=== PATIENT | male | born 1945 | race Caucasian/White ===

== ENCOUNTER 2019-09-04 01:03 | Observation (INO) ==
--- NOTE | 2019-09-04 01:21 | PROVIDER DOCUMENTATION ---
HPI-Chest Pain - General Chief Complaint: Chest Pain Stated Complaint: cp Time Seen by Provider: 09/04/19 01:07 Source: patient Allergies/Adverse Reactions: Patient Allergies Allergy/AdvReac Type Severity Reaction Status Date / Time No Known Allergies Allergy Verified 09/04/19 02:07 Home Medications: Home Medication List Medication Instructions Recorded Confirmed Last Taken Type Aspirin EC 81 mg PO DAILY 07/31/13 09/04/19 07/31/13 06:00 History Glimepiride [Amaryl] 2 mg PO BID 07/31/13 09/04/19 07/31/13 06:00 History Isosorbide Mononitrate E.r. [Imdur] 60 mg PO DAILY 07/31/13 09/04/19 07/31/13 06:00 History Metformin HCl 500 mg PO TID 07/31/13 09/04/19 07/31/13 06:00 History Ranitidine [Zantac] 150 mg PO BID 07/31/13 09/04/19 07/31/13 06:00 History Atorvastatin Calcium 20 mg PO DAILY 09/04/19 09/04/19 Unknown History Metoprolol Tartrate 50 mg PO BID 09/04/19 09/04/19 Unknown History - History of Present Illness- Nature of Presenting Problem: 73 y/o WM c/o substernal chest pain that started about 4-5 hrs ago. Pt denies any radiation, SOB, nausea. Pt does have a hx of htn and diabetes. Location: reports: substernal Chest Pain Radiation: reports: no radiation Quality of Pain: reports: aching, pressure Severity in ED: moderate Onset/Duration: 4-6 hours ago Timing: still present Context/Activities at Onset: reports: light activity Modifying Factors: improves with: movement Associated Symptoms: denies: shortness of breath Nitro Today/Relief: no nitro taken today Aspirin Treatment Today: unknown Prior Chest Pain/Cardiac Workup: reports: no prior chest pain Similar Symptoms Previously?: No Recently Seen Here or By Another Healthcare Provider: No Review of Systems - Adult - REVIEW OF SYSTEMS - ADULT Constitutional: reports: no symptoms reported, see HPI Eyes: reports: no symptoms reported, see HPI Ears, Nose, Mouth & Throat: reports: no symptoms reported, see HPI Cardiovascular: reports: see HPI, chest pain Respiratory: reports: no symptoms reported, see HPI Gastrointestinal: reports: no symptoms reported, see HPI Genitourinary: reports: no symptoms reported, see HPI Musculoskeletal: reports: no symptoms reported, see HPI Integumentary: reports: no symptoms reported, see HPI Neurological: reports: no symptoms reported, see HPI Psychiatric: reports: no symptoms reported, see HPI Endocrine: reports: no symptoms reported, see HPI Hematologic/Lymphatic: reports: no symptoms reported, see HPI Allergic/Immunologic: reports: no symptoms reported, see HPI All Other Systems: Reviewed and Negative Past History - Adult - PAST MEDICAL HISTORY-ADULT Review of Records: reports: Nursing Assessment Review, Medications Reviewed, So cial history reviewed & non-contributory. Physical Exam-General - PHYSICAL EXAM-ADULT Initial Vital Signs Reviewed: Yes - CONSTITUTIONAL General Appearance: appears well, alert, no apparent distress - EYES Eyes: PERRL/EOMI - HEAD, EARS, NOSE, MOUTH & THROAT HENMT: normocephalic/atraumatic, moist mucous membranes - NECK Neck: non-tender, full range of motion, supple, normal inspection - RESPIRATORY Respiratory: chest non-tender, lungs clear, normal breath sounds, no pleuratic chest pain, no respiratory distress, no accessory muscle use - CARDIOVASCULAR Cardiovascular: normal peripheral pulses, regular rate, rhythm, no edema, no gallop, no JVD, no murmur - GASTROINTESTINAL (ABDOMEN) Abdominal Exam: normal bowel sounds, non tender, soft, no organomegaly, no pulsatile mass - LYMPHATIC Lymphatic: no adenopathy - MUSCULOSKELETAL Back Exam: normal inspection, no CVA tenderness, no vertebral tenderness Extremity: normal range of motion, non-tender, normal gait, normal inspection, no pedal edema, no calf tenderness, normal capillary refill - SKIN Integumentary: normal color, normal turgor - NEUROLOGIC Neurologic: waterproof coating machine tender II-XII nml as tested, grossly normal, no motor/sensory deficits - PSYCHIATRIC Psych/Mental Status: normal mood/affect, normal thought content, normal thought process, oriented x 3 - HEART Score HEART Score: History: Moderately Suspicious HEART Score: ECG: Non-Specific Repolarization Disturbance/LBBB/PM HEART Score: Age: > or = 65 Years HEART Score: Risk Factors for Atherosclerotic Disease: > or = 3 Risk Factors or History of Atherosclerotic Disease HEART Score: Troponin: < or = Normal Limit Total HEART Score:: 6 Progress - PLAN OF CARE/RESULTS Progress/Plan/Lab Results: Vital Signs - 8 hr 09/04/19 01:27 09/04/19 03:19 Temperature 98.2 F Pulse Rate 57 L 57 L Respiratory Rate 16 16 Blood Pressure 190/101 149/96 O2 Sat by Pulse Oximetry 98 97 Laboratory Results - last 24 hr 09/04/19 09/04/19 09/04/19 01:33 01:33 01:33 WBC RBC Hgb Hct MCV MCH MCHC RDW Std Deviation Plt Count MPV Immature Gran % (Auto) Neut % (Auto) Lymph % (Auto) [place] % (Auto) Eos % (Auto) Baso % (Auto) Immature Gran # (Auto) Neut # (Auto) Lymph # (Auto) [place] # (Auto) Eos # (Auto) Baso # (Auto) PT INR PTT (Actin FS) Sodium 142 Potassium 4.7 Chloride 103 Carbon Dioxide 26 Anion Gap 13 BUN 17 Creatinine 1.5 H Estimated GFR/1.73 m2 46 BUN/Creatinine Ratio 11 Glucose 101 Calculated Osmolality 285 Calcium 9.2 Total Bilirubin 0.27 AST 8 L ALT 7 L Alkaline Phosphatase 115 Troponin T High Sens 16 Qbt-J-Dylqobwaslz Pept 862 H Total Protein 6.5 Albumin 3.6 Globulin 2.9 Albumin/Globulin Ratio 1.2 09/04/19 09/04/19 01:33 01:33 WBC 10.21 RBC 3.69 L Hgb 12.4 L Hct 38.9 L MCV 105.4 H MCH 33.6 H MCHC 31.9 L RDW Std Deviation 13.6 Plt Count 323 MPV 9.1 Immature Gran % (Auto) 0.4 Neut % (Auto) 65.0 Lymph % (Auto) 19.8 L Elmore % (Auto) 10.8 H Eos % (Auto) 3.8 Baso % (Auto) 0.2 Immature Gran # (Auto) 0.04 Neut # (Auto) 6.64 H Lymph # (Auto) 2.02 Elmore # (Auto) 1.10 H Eos # (Auto) 0.39 Baso # (Auto) 0.02 PT 13.2 INR 0.99 PTT (Actin FS) 32.1 Sodium Potassium Chloride Carbon Dioxide Anion Gap BUN Creatinine Estimated GFR/1.73 m2 BUN/Creatinine Ratio Glucose Calculated Osmolality Calcium Total Bilirubin AST ALT Alkaline Phosphatase Troponin T High Sens Uam-N-Frvanjvawid Pept Total Protein Albumin Globulin Albumin/Globulin Ratio Orders Category Date Time Status CHEST-1 VIEW [RAD] Stat Exams 09/04/19 01:11 Taken CBC WITH ELECTRONIC DIFF [HEME] Stat Lab 09/04/19 01:33 Completed COMPREHENSIVE METABOLIC PANEL [CHEM] Stat Lab 09/04/19 01:33 Completed PRO B-NATRIURETIC PEPTIDE Stat Lab 09/04/19 01:33 Completed PROTIME WITH INR [COAG] Stat Lab 09/04/19 01:33 Completed PTT [COAG] Stat Lab 09/04/19 01:33 Completed TROPONIN T HIGH SENSITIVITY Stat Lab 09/04/19 01:33 Completed Nitroglycerin Sl [Nitroglycerin] Med 09/04/19 02:01 Active 0.4 mg SL Q5M PRN PRN EKG [EKG] Stat Ther 09/04/19 01:11 Draft At recheck, pt noted that his chest pain greatly improved with nitro in the ER. Result Diagrams: 09/04/19 01:33 09/04/19 01:33 - EKG 1 Time of EKG reading by physician:: 01:24 EKG Read and Signed by:: Miguel A Sargent EKG Interpretation (*Must complete 3 of following elements*): Abnormal Rate: 56 Rhythm: sinus [place] Interval: normal ST Wave: depressed (in v3-v4) - XRAY 1 XRAY Study: Chest Impression: Abnormal, See EMR Report - CONSULTS/PCP/HOSPITALIST Notification #1 *Consult/PCP/Hospitalist*: Dr Rowley Time Discussed: 03:36 Consult Disposition: Will see in ED, Admit Departure - Departure Date of Disposition Decision: 09/04/19 Time of Disposition Decision: 03:34 DIAGNOSIS: Chest pain, Uncontrolled hypertension, CHF (congestive heart failure) Disposition: ADMITTED INPATIENT 09 Certified Medical Emergency: Emergent Condition: Fair - Critical Care Note This patient required my direct & personal management of CC.: No Attestation - Physician/ GENIE Attestation Patient care was provided by Advanced Practice Provider:: No The physician spent face to face time with patient:: Yes Advanced Practice Provider documentation review:: Supervising physician onsite and consulted in the evaluation and care of this patient. The physician did have a face to face encounter with the patient.
--- NOTE | 2019-09-04 01:52 | EKG Report ---
Test Performed on : 09/04/2019 01:24:00 AM Test Reason : cp Blood Pressure : / mmHG Vent. Rate : 056 BPM Atrial Rate : 056 BPM P-R Int : 246 ms QRS Dur : 146 ms QT Int : 450 ms P-R-T Axes : 050 209 081 degrees QTc Int : 434 ms Sinus bradycardia. with 1st degree AV block. Indeterminate axis Right bundle branch block Lateral infarct (cited on or before 04-OCT-2015) Possible Inferior infarct (cited on or before 04-OCT-2015) Abnormal ECG When compared with ECG of 05-OCT-2015 02:19, FL interval has increased Questionable change in QRS axis Unconfirmed Result
[2019-09-04 01:58] LABS: INR 0.99; PROTIME 13.2 Seconds (11.0-16.0)
[2019-09-04 01:59] LABS: PTT 32.1 Seconds (22.3-41.8)
[2019-09-04] MEDS ORDERED: NITROGLYCERIN SL PRN (02:01)
[2019-09-04 02:08] LABS: ALB/GLOB RATIO 1.2; ALBUMIN 3.6 g/dL (3.5-5.0); CALCIUM 9.2 mg/dL (8.8-10.2); CREATININE 1.5 mg/dL (0.7-1.2); POTASSIUM 4.7 mmol/L (3.5-5.1); TOTAL BILIRUBIN 0.27 mg/dL (0.20-1.00); TOTAL PROTEIN 6.5 g/dL (6.3-8.3)
[2019-09-04 02:10] LABS: BASO# 0.02 X1000 (0.0-0.2); BASO% 0.2 % (0.0-0.8); EOS# 0.39 X1000 (0.0-0.7); EOS% 3.8 % (0.0-10.0); HEMATOCRIT 38.9 % (42.0-52.0); HEMOGLOBIN 12.4 g/dL (14.0-18.0); IMM GRAN# 0.04 X1000 (0.0-0.04); IMM GRAN% 0.4 % (0.0-0.5); LYMPH# 2.02 X1000 (1.2-3.4); LYMPH% 19.8 % (20.5-51.1); MCH 33.6 PG (27-31); MCHC 31.9 g/dL (33-37); MCV 105.4 FL (81-99); MONO% 10.8 % (1.7-9.3); MPV 9.1 FL (7.4-10.4); NEUT# 6.64 X1000 (1.4-6.5); PLT 323 X1000 (130-400); RBC 3.69 XMIL (4.7-6.1); RDW 13.6 % (11.5-14.5); WBC 10.21 X1000 (4.8-10.8)
--- NOTE | 2019-09-04 05:01 | HISTORY AND PHYSICAL ---
PRIMARY CARE PROVIDER: Dr. Welch. CHIEF COMPLAINT: Chest pain. HISTORY OF PRESENTING ILLNESS: A 73-year-old male with a history of COPD, diabetes mellitus type 2, coronary disease, GERD, who had presented to emergency department with 1-day history of having substernal chest pain. He described it more as a burning sensation and stated that it was not improving. He was seen in the ED and due to his presenting symptoms it was thought that we will place him for observation for further evaluation and management. The patient is a poor historian. However, he had denied any headache, fever, chills, nausea, vomiting, diarrhea, hemoptysis, melena, weight changes, but complained of chest pain. PAST MEDICAL HISTORY: Includes COPD, diabetes mellitus type 2, coronary artery disease, GERD. PAST SURGICAL HISTORY: Vagotomy. ALLERGIES: No known drug allergies. CURRENT MEDICATIONS: Aspirin 81 mg p.o. daily, atorvastatin 20 mg p.o. daily, glimepiride 2 mg p.o. b.i.d., isosorbide mononitrate ER 60 mg p.o. daily, metformin 500 mg p.o. t.i.d., metoprolol 50 mg p.o. b.i.d., ranitidine 150 mg p.o. b.i.d. SOCIAL HISTORY: Forty pack years history of smoking. Denies any history of alcohol or illicit drug use. FAMILY HISTORY: No history of coronary artery disease. REVIEW OF SYSTEMS: Fourteen point review of system is as listed in HPI. Other systems negative. PHYSICAL EXAMINATION: GENERAL: Cooperative, friendly male. He is resting comfortably now. VITAL SIGNS: Temperature 98.2 degrees, pulse 57, respirations 16, blood pressure 149/96. HEENT: Atraumatic, normocephalic. Extraocular movements intact. PERRLA. NECK: Supple. CHEST: Clear to auscultation. CARDIOVASCULAR: Regular rate and rhythm. S1, S2. ABDOMEN: Soft. Positive bowel sounds. EXTREMITIES: No edema. NEUROLOGIC: He is awake, alert, oriented x3. GENITOURINARY: No bladder distention. SKIN: Warm. LABORATORIES AND STUDIES: WBCs 10.21, hemoglobin 12.4, hematocrit 38.9, platelets 323,000. Sodium 142, potassium 4.7, chloride 103, CO2 is 26, BUN is 17, creatinine is 1.5, glucose 101. Troponin is 16. ASSESSMENT: This is a 73-year-old male with a history of chronic obstructive pulmonary disease, diabetes mellitus type 2, gastroesophageal reflux disease and coronary artery disease who presented to emergency department with 1-day history of having chest pain. We will place the patient for observation for further evaluation and management. 1. Chest pain. 2. Gastroesophageal reflux disease. 3. Diabetes mellitus type 2. 4. Chronic obstructive pulmonary disease. PLAN: 1. We will admit patient to medical floor with telemetry. 2. Continue with cardiac workup. Check EKG, serial cardiac enzymes. Have patient continue on aspirin. We will use sublingual nitroglycerin p.r.n. chest pain. 3. Consult Cardiology. 4. We will continue patient on a PPI. 5. We will monitor blood glucose and put patient on sliding scale insulin regimen. 6. Continue with albuterol inhaler p.r.n. 7. Put patient on DVT prophylaxis with SCDs. 8. We will continue to follow, and reassess and make further recommendation based on patient's clinical course. cc: Thomas Rowley MD
--- NOTE | 2019-09-04 05:25 | Diag Imaging Result Doc PS360 ---
EXAM: CHEST-1 VIEW HISTORY: cp TECHNIQUE: Single view COMPARISON: 07/07/2017 FINDINGS: The lungs are well expanded. The heart is mildly prominent. The vessels are not distended. There are no infiltrates. No effusion identified. IMPRESSION: Mildly prominent heart also the patient is rotated to the right. Electronically signed by Abdias Mccallum 09/04/2019 5:22 AM
[2019-09-04] MEDS ORDERED: TYLENOL PO PRN (05:42)
[2019-09-04] MEDS ORDERED: ZOFRAN IV PRN (05:42)
[2019-09-04] MEDS: HUMULIN R SUBQ SCH ×4 (06:19→20:12)
[2019-09-04] MEDS: PRILOSEC PO SCH (06:19)
[2019-09-04] MEDS ORDERED: ASPIRIN PO SCH (09:00)
[2019-09-04] MEDS ORDERED: LIPITOR PO SCH (09:00)
[2019-09-04] MEDS: IMDUR PO SCH (09:26)
[2019-09-04] MEDS: LOPRESSOR PO SCH ×2 (09:26→20:12)
[2019-09-04] MEDS: ASPIRIN EC PO SCH (09:26)
--- NOTE | 2019-09-04 11:59 | PROGRESS NOTE ---
DATE: 09/04/2019 SUBJECTIVE: Mr. Byron Peña is a 73-year-old white gentleman, who was admitted earlier today from the emergency room because of the chest pain. His troponin has been negative. He has COPD, diabetes, GERD syndrome, coronary artery disease. He is placed in for observation. We get a Cardiology consult with him. -2 cc: Dennis Welch MD
--- NOTE | 2019-09-04 14:38 | CARDIOLOGY CONSULTATION ---
DATE: 09/04/2019 CHIEF COMPLAINT ON PRESENTATION: Chest pain. HISTORY OF PRESENT ILLNESS: Mr. Peña is a 73-year-old white male who is an extremely poor historian. He presented for evaluation of chest pain that began yesterday around 7 o'clock in the evening while he was lying down. This pain got much worse with movement of his upper extremities. Specifically, movements from the shoulders, movements involving lifting his arms and using his shoulder muscles. Yesterday he reported that this was the first time this year that he weed- eated. He did so for an hour. He had no exertional chest pain occurring during the course of that activity. He reports no associated symptoms. He has had no nausea, vomiting. No shortness of breath. Again he was an extremely poor historian. PAST MEDICAL HISTORY: 1. Significant for coronary disease. His last cardiac catheterization was demonstrated to be in December 2009. At that time, he had a left main with no critical disease. Left anterior descending had sequential mid 60% lesions with which did not appear to be flow-limiting. Circumflex was large, codominant, irregularities but no critical disease. There is a long large first obtuse marginal which is occluded. There were no collaterals filling this. The right coronary is a moderate size codominant vessel with late, mid and early 60% lesions that again did not appear to be flow-limiting. The reason for this study was myocardial infarction. 2. Myocardial infarction in December 2009 with catheterization as detailed above. 3. Hypertension. 4. Hyperlipidemia. 5. Diabetes. 6. Tobacco use. 7. Reflux disease. SOCIAL HISTORY: Forty pack years of smoking. No alcohol. FAMILY HISTORY: Significant for coronary disease and hypertension. REVIEW OF SYSTEMS: A 10 system review of systems is negative except for those things mentioned in the HPI. PHYSICAL EXAMINATION: Vital signs: Afebrile. Heart rates appear to be in the 40s to 60s. His blood pressure is 148/67, was markedly hypertensive at 190/101 on presentation. Generally: No acute distress. HEENT: Oropharynx is moist. Poor dentition. Eye examination shows pink conjunctivae, white sclerae. Neck: No obvious thyromegaly or thyroid tenderness. Cardiovascular: He sounds to be in a regular rate and rhythm. He has no murmurs, no S3. He has no lower extremity edema. Chest: Sounds relatively clear. He has no increased work of breathing. Abdomen: Soft, nontender, nondistended. He has no obvious organomegaly. Skin: Warm and dry throughout without any rashes. Neurological: Moving all extremities well. He has no lateralizing deficits. PERTINENT DATA: He had a chest x-ray which showed mild prominent heart. His EKG demonstrated sinus rhythm, no ischemic changes. He has no Q-waves present on his EKG. His lab data shows a white count of 10.2, hematocrit 38, platelet count of 323,000. His sodium is 142, potassium 4.7, BUN 17, creatinine is 1.5. He had multiple high-sensitivity troponins, first at 1:33 a.m. was 16, second at 6:10 a.m. was 14. His proBNP was 862. He had no lipid profile checked. ASSESSMENT: Mr. Peña is a 73-year-old gentleman who presented with atypical chest pain. PLAN: At this point, he may be discharged from a cardiovascular standpoint. It sounds like his symptoms were musculoskeletal in etiology. He had been seen by me back in 2016 but did not show back up for followup. I would recommend continuation of his medications with the exception of escalating the atorvastatin to 40 mg given that he has a history of coronary disease and thus is a high risk patient requiring high-intensity therapy. I have made that adjustment. He needs to continue on aspirin therapy, currently dosed at 81 mg daily. He is on a nitrate and beta-jayde. Again, from my standpoint, the patient can be discharged home to follow up with us as an outpatient. cc: MD Dennis Mclain MD
[2019-09-05] MEDS: HUMULIN R SUBQ SCH (06:00)
[2019-09-05] MEDS: PRILOSEC PO SCH (06:10)
[2019-09-05 07:47] VITALS: BP 132/76
[2019-09-05] MEDS: ASPIRIN EC PO SCH (08:29)
[2019-09-05] MEDS: IMDUR PO SCH (08:29)
[2019-09-05] MEDS: LOPRESSOR PO SCH (08:29)
--- NOTE | 2019-09-05 10:51 | DISCHARGE SUMMARY ---
ADMISSION DATE: 09/04/2019 DISCHARGE DATE: 09/05/2019 HISTORY AND HOSPITAL COURSE: Mr. Peña is a 73-year-old, white gentleman with a known case of diabetes, hypertension, hyperlipidemia, coronary artery disease, was admitted with chest pain. Laboratory data in the hospital showed CBC was unremarkable. INR was 0.99. Blood sugar was 208, 255. His troponin was negative. EKG had revealed sinus bradycardia with first-degree AV block, indeterminate axis, right bundle-branch block, possible lateral wall infarction, inferior wall infarct. He was seen by Dr. Corona, who did not want to pursue any further cardiac workup and decided that he can be discharged. He is feeling better. There is no chest pain this morning, and I am going to discharge him. I am going to step up on his atorvastatin from 20 to 40 mg. FINAL DIAGNOSIS: Chest pain is noncardiac in origin. cc: Dennis Welch MD
--- NOTE | 2019-09-05 11:24 | PROGRESS NOTE ---
DATE: 09/05/2019 Mr. Peña does not have any chest pain. He was seen by Dr. Corona yesterday and he will be discharged today. -2 cc: Dennis Welch MD
[2019-09-05] MEDS ORDERED: LIPITOR PO SCH (21:00)
== END 2019-09-05 11:33 | disposition home or self-care (01) ==
LOC: ED 01:03 → 3N 05:32 → INTOOBSV 05:32 → SUATTDRO 05:32
PROVIDERS: ADMIT Internal Medicine; ATTEND Internal Medicine